=== PATIENT | male | born 1945 | race Hispanic/Latino ===

== ENCOUNTER 2025-02-12 09:32 | Emergency (ER) | payer OTHER ==
[~2025-02-12] VITALS: Ht 172.7 cm; Wt 90.7 kg
[2025-02-12] MEDS: LACTATED RINGERS 1000ML 1,000 ML IV ONE (10:23)
[2025-02-12] MEDS: acetaMINOPHEN 325 MG TAB PO ONE (10:23)
[2025-02-12 10:27] LABS: BASOPHILS # (AUTO) 0.03 K/uL (0.00-0.20); BASOPHILS % (AUTO) 0.3 % (0.0-5.0); EOSINOPHILS # (AUTO) 0.05 K/uL (0.00-0.70); EOSINOPHILS % (AUTO) 0.5 % (0.0-8.0); HEMATOCRIT 45.3 % (42-54); IMMATURE GRANULOCYTE ABSOLUTE 0.05 K/uL (0-1); LYMPHOCYTES # (AUTO) 1.5 K/uL (1.0-4.8); LYMPHOCYTES % (AUTO) 13.4 % (21.0-51.0); MEAN CORPUSCULAR HEMOGLOBIN 32.3 pg (27.0-33.0); MEAN CORPUSCULAR HGB CONC 33.8 g/dL (32.0-36.0); MEAN CORPUSCULAR VOLUME 95.8 fL (79-99); MONOCYTES # (AUTO) 1.1 K/uL (0.1-1.0); MONOCYTES % (AUTO) 9.9 % (3.0-13.0); NEUTROPHILS # (AUTO) 8.3 K/uL (1.8-7.7); NEUTROPHILS % (AUTO) 75.4 % (40.0-77.0); PLATELET COUNT (AUTO) 164 K/uL (130-400); RED BLOOD CELL COUNT(AUTO) 4.73 MIL/uL (4.50-6.20); RED CELL DISTRIBUTION WIDTH 12.7 % (11.0-15.5)
[2025-02-12 10:31] LABS: APPEARANCE,URINE CLEAR (CLEAR); BILIRUBIN,URINE NEGATIVE (NEGATIVE); COLOR,URINE LIGHT-YELLOW (YELLOW); GLUCOSE, URINE (UA) NEGATIVE (NEGATIVE); KETONES,URINE NEGATIVE (NEGATIVE); LEUKOCYTE ESTERASE ,URINE NEGATIVE Leu/uL (NEGATIVE); NITRATE,URINE NEGATIVE (NEGATIVE); OCCULT BLOOD,URINE NEGATIVE (NEGATIVE); PROTEIN,URINE NEGATIVE (NEGATIVE)
[2025-02-12 10:32] LABS: ADD UA MICROSCOPIC YES
[2025-02-12 10:33] LABS: MUCUS,URINE RARE LPF (None Seen); SQUAMOUS EPITHELIAL CELL,UR RARE /HPF (0-2); WBC,URINE 0-1 /HPF (0-1)
[2025-02-12 10:34] LABS: CREATININE 1.2 mg/dL (0.5-1.3); POTASSIUM 4.8 mmol/L (3.5-5.1)
--- NOTE | 2025-02-12 10:36 | ERN ---
General Chief Complaint: Headache Stated Complaint: HEADACHE AND JOINT PAIN X3 DAYS Time Seen by MD: 09:35 Source: patient History of Present Illness Initial Comments PATIENT IS A 79-YEAR-OLD GENTLEMAN COMING IN WITH MULTIPLE COMPLAINTS. PER PATIENT HAS BEEN HAVING FLU-LIKE SYMPTOMS FOR A COUPLE OF DAYS. HE STATES THAT HE IS HERE FOR FURTHER EVALUATION. Allergies: Coded Allergies: No Known Allergies (Unverified Allergy, Unknown, 02/12/25) Past Medical History Past Medical History: High Cholesterol, Hypertension Medical History Other: RA Past Surgical History: CABG ROS Dictation CONSTITUTIONAL: NO CHILLS, NO FEVER, NO WEAKNESS, NO DIAPHORESIS, NO MALAISE. HEAD/FACE: NO SIGNS OF TRAUMA. EENT: NO EYE PAIN, NO BLURRED VISION, NO TEARING, NO DOUBLE VISION, NO EAR PAIN, NO EAR DISCHARGE, NO NOSE PAIN, NO NASAL CONGESTION, NO THROAT PAIN, NO THROAT SWELLING, NO MOUTH PAIN. RESPIRATORY: NO COUGH, NO ORTHOPNEA, NO SOB, NO STRIDOR, NO WHEEZING. CARDIOVASCULAR: NO CHEST PAIN, NO EDEMA, NO PALPITATIONS, NO SYNCOPE. GASTROINTESTINAL/ABDOMINAL: NO ABDOMINAL PAIN, NO CONSTIPATION, NO DIARRHEA, NO NAUSEA, NO VOMITING. GENITOURINARY: NO ABNORMAL DISCHARGE, NO DYSURIA, NO FREQUENT URINATION, NO HEMATURIA. NO COMPLAINTS OF PAIN IN THE GENITALS. MUSCULOSKELETAL: NO BACK PAIN, NO GOUT, NO JOINT PAIN, NO JOINT SWELLING, NO MUSCLE PAIN, NO MUSCLE STIFFNESS, NO NECK PAIN. INTEGUMENTARY: NO CHANGE IN COLOR, NO CHANGE IN HAIR/NAILS, NO DRYNESS, NO LESION, NO LUMPS, NO RASH. NEUROLOGICAL/PSYCH: NO ANXIETY, NOT DEPRESSED, NO EMOTIONAL PROBLEM, NO HEADACHE, NO NUMBNESS, NO PRE-EXISTING DEFICIT, NO HISTORY OF SEIZURES, NO TREMORS, NO WEAKNESS. HEMATOLOGIC/LYMPHATIC: NOT ANEMIC, NO HISTORY OF BLOOD CLOTS, NO APPARENT BLEEDING, NO BRUISING, GLANDS NOT SWOLLEN. ALL SYSTEMS NEGATIVE, EXCEPT NOTED. Physical Exam Physical Exam Dictation VITAL SIGNS: REVIEWED. GENERAL APPEARANCE: ALERT, ORIENTED X3, NO ACUTE DISTRESS, OBESE. HEAD AND FACE: NON-TRAUMATIC. EYES: PERRL, PINK CONJUNCTIVAS, EYELID NO TRAUMA, ANTERIOR CHAMBER CLEAR. EARS: PINNAS INTACT AND NO SIGNS OF TRAUMA OR ERYTHEMA. EAR CANALS CLEAR AND NO DISCHARGE. TMS NO ERYTHEMA. NOSE: NO DISCHARGE, NO BLEEDING. OROPHARYNX: MOUTH NORMAL, TEETH NO CARIES, TONGUE PINK. PHARYNX CLEAR, NO ERYTHEMA. TONSILS NO EXUDATES, NO ABSCESSES NOTED. MUCOUS MEMBRANE MOIST. NECK: SUPPLE, NON-TENDER, NO THYROMEGALY, NO MASSES, NO JVD, NO BRUITS. BREAST: DEFERRED. CHEST: NO TENDERNESS, NO CREPITUS, NO PARADOXICAL MOVEMENT, NO RETRACTIONS. LUNGS: CLEAR, WELL-VENTILATED, SYMMETRIC, NO RALES, NO WHEEZING, NO RHONCHI, NO STRIDOR, GOOD BREATH SOUNDS BILATERALLY. HEART: REGULAR RATE, REGULAR RHYTHM, NO MURMUR, NO GALLOPS. VASCULAR: NO PERIPHERAL EDEMA. ABDOMEN: SOFT, POSITIVE BOWEL SOUNDS, NONDISTENDED, NO GUARDING, NONTENDER, NO REBOUND, NO MASSES NO HEPATOMEGALY, NO SPLENOMEGALY, NO COTTER'S SIGN, NO HERNIAS. RECTAL: DEFERRED. GENITAL: DEFERRED. NEUROLOGICAL: NORMAL SPEECH, GROSS MOTOR FUNCTION INTACT, GROSS SENSORY FU NCTION INTACT. MUSCULOSKELETAL: NECK NONTENDER, FULL RANGE OF MOTION, BACK NONTENDER, FULL RANGE OF MOTION. EXTREMITIES: NONTENDER, FULL RANGE OF MOTION. SKIN: COLOR PINK, DRY, NO TURGOR, NO RASH, NO LACERATIONS, NO ABRASIONS, NO CONTUSIONS. LYMPHATICS: DEFERRED. Results Laboratory and Microbiology Lab and Micro Result Laboratory Tests Test 02/12/25 10:00 02/12/25 10:06 Urine Color LIGHT-YELLOW (YELLOW) Urine Appearance CLEAR (CLEAR) Urine pH 6.0 (5.0-8.0) Urine Specific [place] 1.020 (1.001-1.031) Urine Protein NEGATIVE mg/dL (NEGATIVE) Urine Glucose (UA) NEGATIVE mg/dL (NEGATIVE) Urine Ketones NEGATIVE mg/dL (NEGATIVE) Urine Occult Blood NEGATIVE (NEGATIVE) Urine Nitrate NEGATIVE (NEGATIVE) Urine Bilirubin NEGATIVE mg/dL (NEGATIVE) Urine Urobilinogen 2.0 mg/dL (0.2-1.0) H Urine Leukocyte Esterase NEGATIVE John/uL Urine RBC 2-5 /HPF (0-1) H Urine WBC 0-1 /HPF (0-1) Urine Squamous Epithelial Cells RARE /HPF (0-2) Urine Bacteria None /HPF (None Seen) White Blood Count 11.0 K/uL (4.8-10.8) H Red Blood Count 4.73 MIL/uL (4.50-6.20) Hemoglobin 15.3 g/dL (14.0-18.0) Hematocrit 45.3 % (42-54) Mean Corpuscular Volume 95.8 fL (79-99) Mean Corpuscular Hemoglobin 32.3 pg (27.0-33.0) Mean Corpuscular Hemoglobin Concent 33.8 g/dL (32.0-36.0) Red Cell Distribution Width 12.7 % (11.0-15.5) Platelet Count 164 K/uL (130-400) Mean Platelet Volume 9.2 fL (7.5-10.5) Immature Granulocyte % (Auto) 0.5 % (0-1) Neutrophils (%) (Auto) 75.4 % (40.0-77.0) Lymphocytes (%) (Auto) 13.4 % (21.0-51.0) L Monocytes (%) (Auto) 9.9 % (3.0-13.0) Eosinophils (%) (Auto) 0.5 % (0.0-8.0) Basophils (%) (Auto) 0.3 % (0.0-5.0) Neutrophils # (Auto) 8.3 K/uL (1.8-7.7) H Lymphocytes # (Auto) 1.5 K/uL (1.0-4.8) Monocytes # (Auto) 1.1 K/uL (0.1-1.0) H Eosinophils # (Auto) 0.05 K/uL (0.00-0.70) Basophils # (Auto) 0.03 K/uL (0.00-0.20) Absolute Immature Granulocyte (auto 0.05 K/uL (0-1) Nucleated Red Blood Cells 0.0 % (0.0-0.19) Sodium Level 136 mmol/L (136-145) Potassium Level 4.8 mmol/L (3.5-5.1) Chloride Level 101 mmol/L (101-111) Carbon Dioxide Level 29 mmol/L (21-32) Blood Urea Nitrogen 20 mg/dL (7-18) H Creatinine 1.2 mg/dL (0.5-1.3) Glomerular Filtration Rate Calc 62 mL/min (>90) Random Glucose 112 mg/dL (70-105) H Total Calcium 9.0 mg/dL (8.5-10.1) Total Bilirubin 1.1 mg/dL (0.2-1.0) H Aspartate Amino Transf (AST/SGOT) 17 U/L (10-37) Alanine Aminotransferase (ALT/SGPT) 28 U/L (12-78) Alkaline Phosphatase 67 U/L (50-136) Total Creatine Kinase 99 U/L (21-232) Troponin I High Sensitivity 5 ng/L (4-75) Total Protein 7.1 g/dL (6.0-8.3) Albumin 3.6 g/dL (3.5-5.0) Influenza Type A Antigen Negative For Type A Influenza Type B Antigen Negative For Type B SARS-CoV-2, RNA, NAAT NEGATIVE SARS CoV-2 Group A Streptococcus Rapid negative (NEGATIVE) Labs Reviewed?: Yes EKG/XRAY/US/CT/MRI X-RAY Comment [address] [address] IMAGING REPORT Signed PATIENT: SARAHY SEGAL MR#: [id number] : 1945 SEX: M AGE: 79 LOCATION: [facility] ORDER 8 STATUS: [facility] REPORT#: [id number] SERVICE REASON: CP ORDERING PHYSICIAN: BEATRICE HELTON MD PROCEDURE: CXR1VW - CHEST 1VW Exam Type: CHEST 1VW Clinical Information: CP Comparison: None Findings: The lungs are clear of infiltrates. The heart is enlarged. Bony and soft tissue structures of the chest wall are unremarkable. IMPRESSION: Cardiomegaly. Clear lungs. DICTATED BY: ANAMIKA ARREOLA MD DATE: 02/12/251125 ELECTRONICALLY SIGNED BY: ANAMIKA ARREOLA MD DATE: 02/12/251128 MDM MDM: DIFFERENTIAL DIAGNOSIS: DEHYDRATION, URI, BODY ACHES, TENSION HEADACHE, RATIONALE: TESTS CONSIDERED AND ORDERED SECONDARY TO SHARED DECISION MAKING INCLUDE: PREVIOUS OUTSIDE RECORDS REVIEWED: OLD ER VISITS. RISK OF COMPLICATION AND/OR MORBIDITY OR MORTALITY OF PATIENT MANAGEMENT: NONE MEDICATIONS-PER MEDICATION RECONCILIATION PATIENT IS A 79-YEAR-OLD MALE COMING IN COMPLAINING OF BODY ACHES AND URI SYMPTOMS. LABORATORY WORKUP WITHIN NORMAL LIMITS. PATIENT RECEIVED IV FLUIDS AND ANTIPYRETICS STATES HE DOES NOT FEEL BETTER. HE WILL BE DISCHARGED IN STABLE CONDITION. ED Course Orders Procedure Category Date Status Time Cbc With Differential LAB 02/12/25 Complete 09:48 Comprehensive LAB 02/12/25 Complete Metabolic Panel 09:48 Troponin I High LAB 02/12/25 Complete Sensitivity 09:48 Urinalysis Profile LAB 02/12/25 Complete 09:48 12 Lead Ekg Tracing- EKG 02/12/25 Complete Technical 09:48 Lactated Ringers PHA 02/12/25 Complete 1000ml (Lactated 10:00 Acetaminophen 325 Tab PHA 02/12/25 Complete (Tylenol 325mg Tab 10:00 Creatine Kinase, Total LAB 02/12/25 Complete 09:48 Chest 1vw RAD 02/12/25 Resulted 09:48 Covid Rna Naat LAB 02/12/25 Complete 09:49 Influenza Type A & B, LAB 02/12/25 Complete Rapid 09:49 Rapid (Group A Strep) LAB 02/12/25 Complete 09:49 Current Medications Medications (Trade) Dose Ordered Sig/Kimmie Route PRN Reason Start Time Stop Time Status Last Admin Dose Admin Acetaminophen (TYLenol 325MG TAB) 650 mg ONCE ONCE PO 02/12/25 10:00 02/12/25 10:01 DC 02/12/25 10:23 Lactated Ringer's 1,000 ml @ 0 mls/hr ONCE ONCE IV 02/12/25 10:00 02/12/25 10:01 DC 02/12/25 10:23 Vital Signs Date Time Temp Pulse Resp B/P (MAP) Pulse Ox O2 Delivery O2 Flow Rate FiO2 02/12/25 10:28 99.1 77 18 126/70 95 Room Air* 0 21 02/12/25 10:23 99.1 02/12/25 09:35 101.8 82 18 132/70 93 Room Air 0 DX & DISP Disposition: Discharge Departure Impression: Primary Impression: Dehydration Additional Impression: URI (upper respiratory infection) Condition: Stable Additional Instructions: FOLLOW-UP WITH PRIMARY CARE PROVIDER IN 1 TO 2 DAYS. TAKE MEDICATIONS DIRECTED HERE IN THE EMERGENCY ROOM. OKAY TO CONTINUE HOME MEDICATIONS UNLESS OTHERWISE DISCUSSED DURING YOUR VISIT IN THE EMERGENCY ROOM TODAY. RETURN TO YOUR NEAREST EMERGENCY ROOM IF SYMPTOMS WORSEN OR IF THERE IS NO IMPROVEMENT. CALL 911 IF YOU NEED IMMEDIATE ASSISTANCE. TAKE TYLENOL [id number] NEEDED AND IF NO CONTRAINDICATIONS ARE PRESENT. INCREASE ORAL HYDRATION. A WOUND CULTURE OR URINE CULTURE WAS ORDERED HERE IN THE EMERGENCY ROOM DEPARTMENT PLEASE FOLLOW-UP WITH PRIMARY CARE PROVIDER AND ADVISE THEM TO GET REPEAT PORTS FROM OUR FACILITY. IF YOU HAD ANY EMILY WRAP/SPLINTS THAT WERE APPLIED HERE, PLEASE DO NOT REMOVE THEM UNTIL YOU SEE YOUR PRIMARY CARE OR SPECIALTY. REFERRALS: Referrals: SELF,REFERRAL (PCP) JACLYN ADLER MD Time of Disposition: 12:03 BEATRICE HELTON MD February 12, 2025 10:36
[2025-02-12 10:37] LABS: RAPID GROUP A STREP negative (NEGATIVE)
[2025-02-12 10:39] LABS: ALBUMIN 3.6 g/dL (3.5-5.0); BILIRUBIN,TOTAL 1.1 mg/dL (0.2-1.0); TOTAL PROTEIN, SERUM 7.1 g/dL (6.0-8.3)
[2025-02-12 10:41] LABS: SARS-CoV-2, RNA, NAAT NEGATIVE SARS CoV-2 (NEGATIVE)
[2025-02-12 10:47] LABS: INFLUENZA TYPE A Negative For Type A (NEGATIVE); INFLUENZA TYPE B Negative For Type B (NEGATIVE)
--- NOTE | 2025-02-12 11:07 | EKG ---
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
[2025-02-12 11:14] VITALS: TEMP 99.1
--- NOTE | 2025-02-12 11:29 | HMCIMG ---
Exam Type: CHEST 1VW Clinical Information: CP Comparison: None Findings: The lungs are clear of infiltrates. The heart is enlarged. Bony and soft tissue structures of the chest wall are unremarkable. IMPRESSION: Cardiomegaly. Clear lungs.
[2025-02-12 12:03] VITALS: BP 133/68; PULSE 76; RESP 17; TEMP 98.9; O2SAT 95
--- NOTE | 2025-02-12 12:16 | NUR ---
PT AAOX4, PT IS STABLE NO DISTRESS VITALS WNL NO C/O PAIN NOW, PT GIVEN INSTRUCTIONS FOR HOME, IV REMOVED CATHETER INTACT. PT HAD HIS DRIVE HIM HOME. NO NEW MEDICATIONS AT THIS TIME.
== END 2025-02-12 12:18 | disposition home or self-care (01) ==
LOC: EDH 09:32
DX: E86.0 Dehydration (principal); J06.9 Acute upper respiratory infection, unspecified; E78.00 Pure hypercholesterolemia, unspecified; Z95.1 Presence of aortocoronary bypass graft; Z20.822 Contact with and (suspected) exposure to COVID-19
CPT/HCPCS: 99285; 96360; 71045; 87635; 82550; 84484; 80053; 85025; 87880; 87804 ×2; 81001; 36415; 93005; J7120

== ENCOUNTER 2025-07-19 16:32 | Inpatient (IN) | payer OTHER ==
[~2025-07-19] VITALS: Ht 172.7 cm; Wt 86.5 kg
[~2025-07-19 16:32] MED LIST: ASPI-1443 PO; ATOR10 PO; CARV3.12 PO; HYDR-4060 PO; HYDR200T75 PO; LISI2.5T13 PO
--- NOTE | 2025-07-19 16:58 | EKG ---
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
[2025-07-19 17:03] LABS: IMMATURE GRANULOCYTE ABSOLUTE 0.05 K/uL (0-1); NUCLEATED RED BLOOD CELLS 0.0 % (0.0-0.19); PLATELET COUNT (AUTO) 293 K/uL (130-400); RED BLOOD CELL COUNT(AUTO) 3.85 MIL/uL (4.50-6.20); RED CELL DISTRIBUTION WIDTH 12.9 % (11.0-15.5); WHITE BLOOD COUNT (AUTO) 9.6 K/uL (4.8-10.8)
--- NOTE | 2025-07-19 17:10 | ERN ---
General Chief Complaint: Post-Op Problem Stated Complaint: RT KNEE PAIN POST OP PROBLEM Time Seen by MD: 16:37 Source: patient History of Present Illness Initial Comments Patient is a 79-year-old male coming in complaining of right knee pain. Per patient the pain has been ongoing for a couple of days progressively getting worse. He recently had an operation on the right knee by Dr. Quick. Allergies: Coded Allergies: No Known Allergies (Unverified Allergy, Unknown, 02/12/25) Home Meds Active Scripts Hydrocodone/Acetaminophen (Hydrocodon-Acetaminophen 5-325) 5 Mg-325 Mg Tablet, 1 -2 TAB PO Q8H PRN for ACUTE POST-OP PAIN (G89.18) for 7 Days, #42 TAB 0 Refills Prov:CONSTANCE QUICK MD 07/14/25 Aspirin (Aspirin EC) 81 Mg Tablet.dr, 81 MG PO BID for DVT PROPHYLAXIS for 20 Days, #40 TAB Prov:CONSTANCE QUICK MD 07/14/25 Reported Medications Hydroxychloroquine Sulfate (Hydroxychloroquine Sulfate) 200 Mg Tablet, 200 MG PO DAILY, TAB EVERY MON-Mon07/10/25 Carvedilol (Carvedilol) 3.125 Mg Tablet, 3.125 MG PO BID, TAB 07/10/25 Atorvastatin Calcium (LIPITOR) 20 Mg Tab, 20 MG PO DAILY, TAB 07/10/25 Lisinopril (Lisinopril) 2.5 Mg Tablet, 2.5 MG PO DAILY, TAB 07/10/25 Past Medical History Past Medical History: High Cholesterol, Hypertension Medical History Other: RA Past Surgical History: CABG, Other Surgical History Other: RT TOTAL KNEE REPLACEMENT ROS Dictation CONSTITUTIONAL: No chills, no fever, no weakness, no diaphoresis, no malaise. HEAD/FACE: No signs of trauma. EENT: No eye pain, no blurred vision, no tearing, no double vision, no ear pain, no ear discharge, no nose pain, no nasal congestion, no throat pain, no throat swelling, no mouth pain. RESPIRATORY: No cough, no orthopnea, no SOB, no stridor, no wheezing. CARDIOVASCULAR: No chest pain, no edema, no palpitations, no syncope. GASTROINTESTINAL/ABDOMINAL: No abdominal pain, no constipation, no diarrhea, no nausea, no vomiting. GENITOURINARY: No abnormal discharge, no dysuria, no frequent urination, no hematuria. No complaints of pain in the genitals. MUSCULOSKELETAL: No back pain, no gout, joint pain, joint swelling, no muscle pain, no muscle stiffness, no neck pain. INTEGUMENTARY: No change in color, no change in hair/nails, no dryness, no lesion, no lumps, no rash. NEUROLOGICAL/PSYCH: No anxiety, not depressed, no emotional problem, no headache, no numbness, no pre-existing deficit, no history of seizures, no tremors, no weakness. HEMATOLOGIC/LYMPHATIC: Not anemic, no history of blood clots, no apparent bleeding, no bruising, glands not swollen. All Systems Negative, Except as Noted. Physical Exam Physical Exam Dictation VITAL SIGNS: Reviewed. GENERAL APPEARANCE: Alert, oriented x3, no acute distress, obese. HEAD AND FACE: Non-traumatic. EYES: PERRL, pink conjunctivas, eyelid no trauma, anterior chamber clear. EARS: Pinnas intact and no signs of trauma or erythema. Ear canals clear and no discharge. TMs no erythema. NOSE: No discharge, no bleeding. OROPHARYNX: Mouth normal, teeth no caries, tongue pink. Pharynx clear, no erythema. Tonsils no exudates, no abscesses noted. Mucous membrane moist. NECK: Supple, non-tender, no thyromegaly, no masses, no JVD, no bruits. BREAST: Deferred. CHEST: No tenderness, no crepitus, no paradoxical movement, no retractions. LUNGS: Clear, well-ventilated, symmetric, no rales, no wheezing, no rhonchi, no stridor, good breath sounds bilaterally. HEART: Regular rate, regular rhythm, no murmur, no gallops. VASCULAR: No peripheral edema. ABDOMEN: Soft, positive bowel sounds, nondistended, no guarding, nontender, no rebound, no masses no hepatomegaly, no splenomegaly, no Arias's sign, no hernias. RECTAL: Deferred. GENITAL: Deferred. NEUROLOGICAL: Normal speech, gross motor function intact, gross sensory function intact. MUSCULOSKELETAL: Neck nontender, full range of motion, back nontender, full range of motion. EXTREMITIES: Nontender, full range of motion. Right knee pain on palpation SKIN: Color pink, dry, no turgor, no rash, no lacerations, no abrasions, no contusions. LYMPHATICS: Deferred. Results Laboratory and Microbiology Lab and Micro Result Laboratory Tests Test 07/19/25 16:57 07/19/25 17:32 White Blood Count 9.6 K/uL (4.8-10.8) Red Blood Count 3.85 MIL/uL (4.50-6.20) L Hemoglobin 12.1 g/dL (14.0-18.0) L Hematocrit 35.5 % (42-54) L Mean Corpuscular Volume 92.2 fL (79-99) Mean Corpuscular Hemoglobin 31.4 pg (27.0-33.0) Mean Corpuscular Hemoglobin Concent 34.1 g/dL (32.0-36.0) Red Cell Distribution Width 12.9 % (11.0-15.5) Platelet Count 293 K/uL (130-400) Mean Platelet Volume 8.8 fL (7.5-10.5) Immature Granulocyte % (Auto) 0.5 % (0-1) Neutrophils (%) (Auto) 59.4 % (40.0-77.0) Lymphocytes (%) (Auto) 28.0 % (21.0-51.0) Monocytes (%) (Auto) 10.3 % (3.0-13.0) Eosinophils (%) (Auto) 1.4 % (0.0-8.0) Basophils (%) (Auto) 0.4 % (0.0-5.0) Neutrophils # (Auto) 5.7 K/uL (1.8-7.7) Lymphocytes # (Auto) 2.7 K/uL (1.0-4.8) Monocytes # (Auto) 1.0 K/uL (0.1-1.0) Eosinophils # (Auto) 0.13 K/uL (0.00-0.70) Basophils # (Auto) 0.04 K/uL (0.00-0.20) Absolute Immature Granulocyte (auto 0.05 K/uL (0-1) Nucleated Red Blood Cells 0.0 % (0.0-0.19) Sodium Level 137 mmol/L (136-145) Potassium Level 4.5 mmol/L (3.5-5.1) Chloride Level 100 mmol/L (101-111) L Carbon Dioxide Level 23 mmol/L (21-32) Blood Urea Nitrogen 22 mg/dL (7-18) H Creatinine 1.1 mg/dL (0.5-1.3) Glomerular Filtration Rate Calc 69 mL/min (>90) Random Glucose 134 mg/dL (70-105) H Lactic Acid Level 2.8 mmol/L (0.8-2.5) H Total Calcium 9.1 mg/dL (8.5-10.1) Total Creatine Kinase 41 U/L (21-232) # Troponin I High Sensitivity 5 ng/L (4-75) Urine Color YELLOW (YELLOW) Urine Appearance CLEAR (CLEAR) Urine pH 7.0 (5.0-8.0) Urine Specific [place] 1.019 (1.001-1.031) Urine Protein NEGATIVE mg/dL (NEGATIVE) Urine Glucose (UA) NEGATIVE mg/dL (NEGATIVE) Urine Ketones NEGATIVE mg/dL (NEGATIVE) Urine Occult Blood NEGATIVE (NEGATIVE) Urine Nitrate NEGATIVE (NEGATIVE) Urine Bilirubin NEGATIVE mg/dL (NEGATIVE) Urine Urobilinogen 0.2 mg/dL (0.2-1.0) Urine Leukocyte Esterase NEGATIVE John/uL Labs Reviewed?: Yes EKG/XRAY/US/CT/MRI EKG Comment 07/19/2025 time 4:53 p.m. Ventricular rate 73 Sinus rhythm [place] [address] wave elevation or depression MDM MDM: Differential diagnosis: Lactic acidosis, sepsis, seizures, dehydration Rationale: Tests considered and ordered secondary to shared decision making include: labs, ECG and radiology Previous outside records reviewed: Old ER visits. Risk of complication and/or morbidity or mortality of patient management: None Medications-Per medication reconciliation Need for hospitalization: Patient does meet criteria for hospitalization. Need for emergency major/minor surgery: No There are no social concerns with this patient. Prescription drug management Prescriptions will include symptomatic care Patient's prior external medical records from other ER visits were reviewed by me as indicated. Prior testing and results from previous visits were reviewed. Prior tests were taken into account with medical decision making and resource utilization, independent historian/historians were used to obtain complete me dical history. I independently interpreted the test that were performed, results were reviewed by me and considered findings on radiology if ordered. Medical management and examination interpretation discussions were had by me with other qualified healthcare professionals as indicated for the patient's care. Patient is a 79-year-old gentleman coming in complaining of right knee pain. Patient has a surgical procedure by Dr. Husain was in his coming in due to the pain. X-ray did not disclose acute findings laboratory workup positive for elevated lactic acid. Patient will be admitted under the care of hospitalist group for ongoing management. Blood cultures has been taken we will start him on antibiotics. ED Course Orders Procedure Category Date Status Time 12 Lead Ekg Tracing- EKG 07/19/25 Complete Technical 16:39 Cbc With Differential LAB 07/19/25 Complete 16:39 Blood Cult LAI 07/19/25 In Process 16:39 Urinalysis Profile LAB 07/19/25 Complete 16:39 Culture Urine LAI 07/19/25 In Process 16:39 Acetaminophen 500mg PHA 07/19/25 Complete Tab (Tylenol 500mg T 17:00 Creatine Kinase, Total LAB 07/19/25 Complete 16:39 Troponin I High LAB 07/19/25 Complete Sensitivity 16:39 Lactic Acid LAB 07/19/25 Complete 16:39 Basic Metabolic Panel LAB 07/19/25 Complete 16:39 Knee 3vws Rt RAD 07/19/25 Taken 17:15 0.9%Nacl 1000ml (Ns PHA 07/19/25 Logged 1000ml) 18:30 Current Medications Medications (Trade) Dose Ordered Sig/Kimmie Route PRN Reason Start Time Stop Time Status Last Admin Dose Admin Acetaminophen (TYLenol 500MG TAB) 1,000 mg ONCE ONCE PO 07/19/25 17:00 07/19/25 17:01 DC 07/19/25 17:33 Sodium Chloride 1,000 ml @ 0 mls/hr ONCE ONCE IV 07/19/25 18:30 07/19/25 18:31 UNV Vital Signs Date Time Temp Pulse Resp B/P (MAP) Pulse Ox O2 Delivery O2 Flow Rate FiO2 07/19/25 17:20 97.2 82 16 134/72 Room Air* 0 21 07/19/25 16:37 99.1 76 20 134/68 100 Room Air DX & DISP Disposition: Inpatient Decision to Admit Time: 18:08 Departure Impression: Primary Impression: Dehydration Additional Impressions: Lactic acidosis, SIRS (systemic inflammatory response syndrome) Condition: Stable Referrals: JOHN AMBROSIO MD (PCP) BEATRICE HELTON MD Jul 19, 2025 17:10
[2025-07-19 17:16] LABS: CREATININE 1.1 mg/dL (0.5-1.3); GLOMERULAR FILTR. RATE CALC 69.0 mL/min (>90); GLUCOSE,RANDOM 134.0 mg/dL (70-105); SODIUM SERUM 137.0 mmol/L (136-145); UREA NITROGEN, BLOOD 22.0 mg/dL (7-18)
[2025-07-19 17:27] LABS: CREATINE KINASE, TOTAL 41.0 U/L (21-232)
[2025-07-19 17:44] LABS: APPEARANCE,URINE CLEAR (CLEAR); GLUCOSE, URINE (UA) NEGATIVE (NEGATIVE); LEUKOCYTE ESTERASE ,URINE NEGATIVE Leu/uL (NEGATIVE); NITRATE,URINE NEGATIVE (NEGATIVE); OCCULT BLOOD,URINE NEGATIVE (NEGATIVE)
[2025-07-19 17:45] LABS: ADD UA MICROSCOPIC NO
[2025-07-19] MEDS: 0.9%NACL 1000ML 1,000 ML IV ONE (18:08)
--- NOTE | 2025-07-19 18:12 | HP ---
History of Present Illness Reason for Visit: right knee pain History of Present Illness is a 79-year-old male that was seen and examined today on 07/19/2025. Patient came to the emergency department with a chief complaint of knee pain. Onset was 07/11/2025. Location is right knee. Duration is on and off. Character is described as aching. There was no alleviating factors. Symptoms are aggravated with walking. Patient denies any associated fever or chills. Patient had a right knee arthroplasty on 07/11/2025. Today in the emergency department lactic acid 2.8. All other labs unremarkable. Right knee x-ray is unremarkable. Emergency room physician recommended patient be admitted so he co uld be evaluated by orthopedic surgeon. Past Medical History Patient History: Cardiovascular disease MOTHER, , Cause: Heart failure Diabetes mellitus MOTHER, , Cause: Heart failure FATHER, , Cause: Pneumonia Hypertension MOTHER, , Cause: Heart failure FATHER, , Cause: Pneumonia ADDITIONAL PAST MEDICAL HISTORY: [Hypertension, hyperlipidemia] SOCIAL HISTORY: [Negative for smoking, alcohol use, drug use] SURGICAL HISTORY: [CABG, right knee arthroplasty, appendectomy in 1970, right shoulder surgery] Review of Systems General: No Fever, No Chills, No Night Sweats, No Fatigue, No Malaise, No Appetite, No Other HEENT: No Head Aches, No Visual Changes, No Eye Pain, No Ear Pain, No Dysphasia, No Sinus Congestion, No Post Nasal Drip, No Sore Throat, No Other Pulmonary: No Dyspnea, No Cough, No Pleuritic Chest Pain, No Other Cardiovascular: No: Chest Pain, Palpitations, Orthopnea, Paroxysmal Noc. Dyspnea, Edema, Lt Headedness, Other Gastrointestinal: No: Nausea, Vomiting, Abdominal Pain, Diarrhea, Constipation, Melena, Hematochezia, Other Genitourinary: No Dysuria, No Frequency, No Incontinence, No Hematuria, No Retention, No Other Musculoskeletal: leg pain; No: other, neck pain, shoulder pain, arm pain, back pain, hand pain, foot pain Skin: No Urticaria, No Rash, No Other Neurological: No: Weakness, Numbness, Incoordination, Change in speech, Confusion, Seizures, Other Allergies: Coded Allergies: No Known Allergies (Unverified Allergy, Unknown, 02/12/25) Scheduled Aspirin (Aspirin EC), 81 MG PO BID Atorvastatin Calcium (Lipitor), 20 MG PO DAILY, (Reported) Carvedilol (Carvedilol), 3.125 MG PO BID, (Reported) Hydroxychloroquine Sulfate (Hydroxychloroquine Sulfate), 200 MG PO DAILY, (Reported) Lisinopril (Lisinopril), 2.5 MG PO DAILY, (Reported) Scheduled PRN Hydrocodone/Acetaminophen (Hydrocodon-Acetaminophen 5-325), 1-2 TAB PO Q8H PRN for ACUTE POST-OP PAIN (G89.18) Exam Vital Signs Vital Signs Date Time Temp Pulse Resp B/P (MAP) Pulse Ox O2 Delivery O2 Flow Rate FiO2 07/19/25 17:20 97.2 82 16 134/72 Room Air* 0 21 07/19/25 16:37 100 General Appearance: Alert, Oriented X3, Cooperative, No acute distress HEENT: Atraumatic, EOMI, Mucous membr. moist/pink Respiratory: Clear to auscultation, Normal air movement, NL respiratory effort Cardiovascular: Regular rate, Regular rhythm, Normal S1, Normal S2 Abdominal: Normal bowel sounds, Soft, No tenderness Extremities: No edema Skin: No breakdown, No significant lesion Neuro: Normal gait, Normal speech, Strength at 5/5 X4 ext, Sensation intact, Cranial nerves 3-12 NL Psych/Mental Status: Mental status NL, Thoughts/Content NL Assessment/Plan ASSESSMENT: [ Right knee pain, POA Status post right knee arthroplasty on 07/11/2025 Hyperlactatemia , POA Weakness] PLAN: [ Admit patient to medical floor as inpatient status. Patient will be followed by orthopedic service. As needed analgesia with morphine. Physical therapy for evaluation and treatment. Check procalcitonin, follow up with the results. Patient does not have any tachycardia, tachypnea, or fever. Patient does not meet clinical sepsis criteria. There was no redness or swelling. There does not appear to be any infection to surgery site. Reviewed patient's right knee x-ray which was unremarkable. Repeat lactic acid in a.m.. Fluid resuscitation lactated Ringer's 30 mL/kg. Check blood culture, follow up with the results. GI prophylaxis, famotidine DVT prophylaxis, Lovenox ADVANCED CARE PLANNING 1. Which of the following were discussed? Hospice Care - Yes Therapeutic options - yes Advance Directives - Yes - patient does not have any advance directives in place at this time. Patient states that his , Margarita avlerio can make decisions for him if he becomes unable. Other discussions - patient wishes to remain a full code 2. Discussed with who? Patient 3. Voluntary nature of this service was explained to the patient? Yes 4. Amount of time spent - ___16 minutes____ 5. Reviewed by Physician? (if this service was performed by NPP) Yes This document was generated in part using voice recognition software, occasional wrong word or sound alike substitutions may have occurred due to the inherent limitations of voice recognition software. Read the chart carefully and recognize using context, where the substitutions have occurred. Although every effort was made to edit the content, register repairer and typing errors may occur ATTESTATION BY PHYSICIAN I have seen and examined the patient. I reviewed the documentation, medical decision making, and treatment plan as noted by the mid-level provider above. I agree with the findings and plan of care.] MADDISON PINEDO [facility] Jul 19, 2025 18:12
--- NOTE | 2025-07-19 18:20 | HMCIMG ---
EXAM: CR right Knee, 3 View. CLINICAL HISTORY: pain COMPARISON: None provided. FINDINGS: Cemented right total knee arthroplasty is in near-anatomic alignment. No periprosthetic fracture is identified. There is a small knee joint effusion. IMPRESSION: 1. No acute findings. Cemented right total knee arthroplasty in near-anatomic alignment with small knee joint effusion. /[place]
[2025-07-19] MEDS ORDERED: LACTULOSE 20 GM/30 ML UDCUP PO PRN (18:30)
[2025-07-19] MEDS: LACTATED RINGERS IV ONE (18:39)
[2025-07-19 21:18] VITALS: TEMP 98.5
[2025-07-19 21:30] VITALS: BP 153/77; PULSE 82; RESP 22; TEMP 97.3
--- NOTE | 2025-07-19 22:00 | NUR ---
admit/teaching patient awake alert, ox3, no family at bedside, dressing right knee d/i, ble scds in place . teach patient plan of care, pain management and expected outcome, patient verbalizes understanding via teach back, attempt to have home medications locked up, patient refuses with have take home in the morning, call larkin at reach
[2025-07-19 23:28] VITALS: BP 129/61; PULSE 72; RESP 16; TEMP 97.9
[2025-07-20] VITALS (7 sets, daily range): BP systolic 108–124; BP diastolic 60–72; PULSE 62–83; RESP 16–20; TEMP 97.4–99.7; O2SAT 97–98
--- NOTE | 2025-07-20 02:20 | NUR ---
hospitalist hospitalist jasmin mcpherson mine expert to see and examen patient with orders
[2025-07-20 04:06] LABS: IMMATURE GRANULOCYTE ABSOLUTE 0.05 K/uL (0-1); NUCLEATED RED BLOOD CELLS 0.0 % (0.0-0.19); PLATELET COUNT (AUTO) 234 K/uL (130-400); RED BLOOD CELL COUNT(AUTO) 3.43 MIL/uL (4.50-6.20); RED CELL DISTRIBUTION WIDTH 12.9 % (11.0-15.5); WHITE BLOOD COUNT (AUTO) 7.6 K/uL (4.8-10.8)
[2025-07-20 04:18] LABS: CREATININE 1.0 mg/dL (0.5-1.3); GLOMERULAR FILTR. RATE CALC 77.0 mL/min (>90); GLUCOSE,RANDOM 115.0 mg/dL (70-105); PHOSPHORUS 3.3 mg/dL (2.5-4.9); SODIUM SERUM 139.0 mmol/L (136-145); UREA NITROGEN, BLOOD 24.0 mg/dL (7-18)
[2025-07-20] MEDS: FAMOTIDINE 20MG TAB PO SCH (08:20)
--- NOTE | 2025-07-20 10:29 | CONS ---
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 The patient was admitted for total knee arthroplasty on 07/11/25 and had a normal, uneventful post-operative care, being dismissed on 07/14/25. The patient reports that on Monday of last week he was seen by the physical therapist from the [facility] that the [place] approved to see him and in his opinion he was a little too rough especially trying to work on extension of the knee doing a passive manipulation the created pain that started to getting worse as time went by and the pain medication prescribed to the patient did not help to relieve it. The patient did not contact my office and presented to the emergency room yesterday afternoon and his labs presented with a normal results except for the presence of an elevated lactic acid reason why the patient was admitted. Since admission the patient has been put on stronger pain medication which has helped relieve some of the pain and he seems to be responding well to it. This morning the lactic acid results were normal. PAST MEDICAL HISTORY: DM, HTN, OA, Heart disease, Hyperlipidemia PAST SURGICAL HISTORY: Open heart, cardiac stent, L TKA, cholecystectomy FAMILY HISTORY: Heart disease, stroke, DM SOCIAL HISTORY: Negative for use of tobacco or alcohol ALLERGIES: NKDA REVIEW OF SYSTEMS: The patient denies fever, chills, night sweats, shortness of breath, palpitations or urinary symptoms. PHYSICAL EXAMINATION: On physical exam the patient at this time is awake, alert and oriented and in no distress sitting in a chair just finishing his lunch. He is breathing normally with no respiratory distress. Examination of the right lower extremity shows postoperative edema as expected. He has an intact dressing with no bleeding which was already changed by the [facility] nurse. The patient has adequate flexion to at least 90 but he has extension actively of-30 degrees and passively goes down to -10. He does have adequate function of the extensor mechanism. Distal neurovascular exam is normal and the calf is soft and nontender. RADIOLOGIC STUDIES: He had three x-rays of the right knee done yesterday which even though they are of good quality, the views are quite unusual which did not allow to evaluate properly but he does not have any fracture or dislocation noted. There is very minimal effusion, and the components are in adequate position and alignment with no signs of loosening. ASSESSMENT: Acute postoperative right knee pain likely secondary to manipulation. Elevated lactic acid which has now resolved PLAN: I have changed the pain medication treatment for this patient at this time and I am going to put him on more of a scheduled medication and tomorrow morning we will dismissed once his pain is under better control. I have tried to contact the nurse in the home health, Nadia Lewis at [phone], telephone that was given to me by the patient. I will try to contact her tomorrow again to give further instructions in reference of the therapy for this patient. CONSTANCE ALDRICH MD Jul 20, 2025 10:29
--- NOTE | 2025-07-20 13:32 | PN ---
[facility] PROGRESS NOTE Date of Service: Jul 20, 2025 Time of Service: 13:24 SUBJECTIVE: 07/20 Patient continues with right knee pain. Patient has been placed on Toradol scheduled q.8 hours by Orthopedic surgery. REVIEW OF SYSTEMS CONSTITUTIONAL: Denies fevers, chills, or night sweats. No unintentional weight loss reported. NEUROLOGICAL: Denies headache, amaurosis fugax, motor weakness, sensory deficit, vertigo/spinning sensation, gait abnormalities, or tremors. ENT: No hearing loss, otalgia, otorrhea, rhinitis, rhinorrhea, hoarseness, or sore throat. CARDIOVASCULAR: Denies any exertional angina, dyspnea on exertion, orthopnea, paroxysmal nocturnal dyspnea, palpitations, life-threatening arrhythmias, claudication. PULMONARY: Denies any shortness of breath, cough, phlegm/sputum, hemoptysis, pleuritic chest pain. SLEEP: Denies morning headaches, daytime somnolence or napping. Denies difficulty falling asleep, staying asleep, waking from sleep. Denies knowledge of snoring. GASTROINTESTINAL: Denies any type of dysphagia to either liquids or solids. Denies nausea, vomiting, pyrosis, early satiety, abdominal pain, diarrhea, constipation, or changes in stool consistency or caliber. Denies coffee-ground emesis, hematemesis, hematochezia, or melanotic stools. GENITOURINARY: Denies frequency, urgency, nocturia, hematuria or incontinence (Storage/Irritative symptoms.) Low urinary stream, straining to void, urinary intermittency or hesitancy, splitting of the voiding stream, terminal dribbling. ENDOCRINOLOGIC: Denies polyuria, polydipsia, polyphagia or heat/cold intolerances. HEMATOLOGIC: Denies thrombophilia/previous clots, or coagulopathy/bleeding disorders. ONCOLOGIC: Denies personal history of malignancy. DERMATOLOGIC: Denies rashes or pruritus. PSYCHIATRIC: Denies any suicidal or homicidal ideation. Denies hallucinations. PHYSICAL EXAM GENERAL APPEARANCE: The patient is awake, alert, and oriented, in no acute cardiopulmonary distress. NEUROLOGICAL: Cranial nerves II-XII grossly intact. Motor is 5/5 in bilateral upper and lower extremities proximal to distal. No sensory deficits. HEENT: Face is symmetric. Pupils are equal and reactive. Extraocular movements are intact. NECK: Supple. No JVD. No thyromegaly. No submental, submandibular, pre-/postauricular, occipital or supraclavicular lymphadenopathy. CHEST: Normal chest expansion. No Telemetry. LUNGS: Absence of any rales, rhonchi or any wheezing. CARDIOVASCULAR: Regular. S1 and S2 normal. No appreciable rubs, murmurs or gallops. ABDOMEN: Soft, nontender, and nondistended. There is no rebound, voluntary guarding, or rigidity. : Deferred. No Dong. EXTREMITIES: Non-edematous and not cyanotic. No clubbing. Good capillary refill. SKIN: No skin breakdown. Vital Signs (last 8hr) Date Time Temp Pulse Resp B/P (MAP) Pulse Ox O2 Delivery O2 Flow Rate FiO2 07/20/25 12:00 97.5 73 18 112/67 99 Room Air 07/20/25 08:00 99.7 80 18 115/72 97 Room Air LABS: Laboratory: Test 07/20/25 03:59 07/19/25 17:32 07/19/25 16:57 Range/Units White Blood Count 7.6 4.8-10.8 K/uL Red Blood Count 3.43 L 4.50-6.20 MIL/uL Hemoglobin 10.6 L 14.0-18.0 g/dL Hematocrit 32.0 L 42-54 % Mean Corpuscular Volume 93.3 79-99 fL Mean Corpuscular Hemoglobin 30.9 27.0-33.0 pg Mean Corpuscular Hemoglobin Concent 33.1 32.0-36.0 g/dL Red Cell Distribution Width 12.9 11.0-15.5 % Platelet Count 234 130-400 K/uL Mean Platelet Volume 8.5 7.5-10.5 fL Immature Granulocyte % (Auto) 0.7 0-1 % Neutrophils (%) (Auto) 64.8 40.0-77.0 % Lymphocytes (%) (Auto) 21.8 21.0-51.0 % Monocytes (%) (Auto) 10.4 3.0-13.0 % Eosinophils (%) (Auto) 2.0 0.0-8.0 % Basophils (%) (Auto) 0.3 0.0-5.0 % Neutrophils # (Auto) 5.0 1.8-7.7 K/uL Lymphocytes # (Auto) 1.7 1.0-4.8 K/uL Monocytes # (Auto) 0.8 0.1-1.0 K/uL Eosinophils # (Auto) 0.15 0.00-0.70 K/uL Basophils # (Auto) 0.02 0.00-0.20 K/uL Absolute Immature Granulocyte (auto 0.05 0-1 K/uL Nucleated Red Blood Cells 0.0 0.0-0.19 % Sodium Level 139 136-145 mmol/L Potassium Level 4.1 3.5-5.1 mmol/L Chloride Level 105 101-111 mmol/L Carbon Dioxide Level 25 21-32 mmol/L Blood Urea Nitrogen 24 H 7-18 mg/dL Creatinine 1.0 0.5-1.3 mg/dL Glomerular Filtration Rate Calc 77 >90 mL/min Random Glucose 115 H 70-105 mg/dL Lactic Acid Level 1.2 0.8-2.5 mmol/L Total Calcium 8.4 L 8.5-10.1 mg/dL Phosphorus Level 3.3 2.5-4.9 mg/dL Magnesium Level 2.10 1.80-2.40 mg/dL Urine Color YELLOW YELLOW Urine Appearance CLEAR CLEAR Urine pH 7.0 5.0-8.0 Urine Specific [place] 1.019 1.001-1.031 Urine Protein NEGATIVE NEGATIVE mg/dL Urine Glucose (UA) NEGATIVE NEGATIVE mg/dL Urine Ketones NEGATIVE NEGATIVE mg/dL Urine Occult Blood NEGATIVE NEGATIVE Urine Nitrate NEGATIVE NEGATIVE Urine Bilirubin NEGATIVE NEGATIVE mg/dL Urine Urobilinogen 0.2 0.2-1.0 mg/dL Urine Leukocyte Esterase NEGATIVE NEGATIVE John/uL Total Creatine Kinase 41 # 21-232 U/L Troponin I High Sensitivity 5 4-75 ng/L Procalcitonin < 0.05 L 0.05-0.5 ng/mL Current Medications Medications (Trade) Dose Ordered Sig/Kimmie Route PRN Reason Start Time Stop Time Status Last Admin Dose Admin Acetaminophen (TYLenol 325MG TAB) 650 mg Q6H PRN PO TEMPERATURE GREATER THAN 101.5 07/19/25 18:30 08/18/25 18:29 07/20/25 08:20 650 MG Acetaminophen (TYLenol 500MG TAB) 1,000 mg Q8H PO 07/20/25 17:00 08/19/25 16:59 Atorvastatin Calcium (LIPItor 40MG) 40 mg HS PO 07/19/25 21:00 08/18/25 20:59 07/19/25 19:33 40 MG Famotidine (Pepcid 20mg Tab) 20 mg DAILY PO 07/20/25 09:00 08/19/25 08:59 07/20/25 08:20 20 MG Hydralazine HCl (APRESOLine 20MG INJ) 10 mg Q6H PRN IV For:SBP above 160;DBP above 90 07/19/25 18:30 08/18/25 18:29 Ketorolac Tromethamine (toRADol) 15 mg Q8H IV 07/20/25 09:00 07/25/25 08:59 Lactulose (Constulose 20gm/ 30ml Udcup) 20 gm BID PRN PO CONSTIPATION 07/19/25 18:30 08/18/25 18:29 Morphine Sulfate (morPHINE 4MG SYG) 2 mg Q4H PRN IVP BREAKTHROUGH PAIN 07/19/25 18:30 07/26/25 18:29 07/20/25 08:20 2 MG Ondansetron HCl (zoFRAN 4MG INJ) 4 mg Q6H PRN IV NAUSEA/VOMITING 07/19/25 18:30 08/18/25 18:29 Oxycodone HCl (ROXicoDONE) 5 mg Q4H PRN PO MODERATE PAIN (4-6) 07/20/25 09:00 07/27/25 08:59 Oxycodone HCl (ROXicoDONE) 10 mg Q4H PRN PO SEVERE PAIN (7-10) 07/20/25 09:00 07/27/25 08:59 DIAGNOSTICS / RADIOLOGY: [ ] ASSESSMENT: Right knee pain, POA Status post right knee arthroplasty on 07/11/2025 Hyperlactatemia , POA Weakness, POA PLAN: Monitor off antibiotics for Signs of infection Trend WBCs Tylenol, oxycodone and IV morphine p.r.n. for breakthrough pain I agree with Toradol scheduled Follow up with Orthopedic surgery, appreciate assistance O2 nasal cannula as needed Continue atorvastatin Monitor blood pressure continue heart healthy diet GI prophylaxis with famotidine No need for IV fluids Trend a.m. BMP Replete electrolytes as necessary DVT prophylaxis with SCDs only for now Trend a.m. CBC Full code Case was discussed with patient's nurse at bedside Attention time greater than 30 minutes DEVIKA GRAHAM IV, MD Jul 20, 2025 13:32
[2025-07-20] MEDS: ASPIRIN 81MG CHEW TAB PO SCH (13:46)
--- NOTE | 2025-07-20 16:42 | NUR ---
DCP: INITIAL ASSESSMENT Patient lives with spouse, Erica Villalobos. He has [facility] that is coming in to provide PT. No PHC services. Patient states he is able to complete ADLs with little help and is not driving at this time. PCP is Dr. Robert Chavira. Pharmacy is [facility] [address] in [place]. Patient voiced no safety concerns regarding returning home and states he has no difficulty with housing or buying food. DCP is home. Patient states that he could not tolerate pain after Physical Therapist came to his home on 07/16/25, and worked with him. Dr. Quick aware and plans to discharge patient on 07/21/25 with current home health but different PT. Patient's nurse is also awae. Addendum: 07/20/25 at 1647 by DEMARCO CASTILLO SS Amended: Links added.
[2025-07-21 03:30] VITALS: BP 119/63; PULSE 60; RESP 20; TEMP 97.9
[2025-07-21 07:44] VITALS: BP 124/69; PULSE 67; RESP 16; TEMP 97.6
[2025-07-21 08:00] VITALS: O2SAT 95
--- NOTE | 2025-07-21 09:43 | NUR ---
DC PLAN CALLED [facility] [phone] EXPLAINED THAT PATIENT HAD COME IN DUE TO PAIN AFTER PHYSICAL THERAPY. SAID PANTERA WOULD LET HIS NURSE KNOW PLAN TO DC TODAY. EMILY EMAILED NOTES REQUESTED TO [email or web address] SAID PANTERA TO RETURN. Addendum: 07/21/25 at 0948 by YAQUELIN VORA RN CM Amended: Links added.
[2025-07-21 11:43] VITALS: BP 120/94; PULSE 78; RESP 16; TEMP 97.6
--- NOTE | 2025-07-21 13:54 | DS ---
Discharge Summary Hospital Course Summary: Patient's pain has improved. He has been cleared by Orthopedic surgery for discharge. Patient should follow up PCP and orthopedic surgery Assessment/Plan: ASSESSMENT: Right knee pain, POA Status post right knee arthroplasty on 07/11/2025 Hyperlactatemia , POA Weakness, POA PLAN: Monitor off antibiotics for Signs of infection Trend WBCs Tylenol, oxycodone and IV morphine p.r.n. for breakthrough pain I agree with Toradol scheduled Follow up with Orthopedic surgery, appreciate assistance O2 nasal cannula as needed Continue atorvastatin Monitor blood pressure continue heart healthy diet GI prophylaxis with famotidine No need for IV fluids Trend a.m. BMP Replete electrolytes as necessary DVT prophylaxis with SCDs only for now Trend a.m. CBC Full code Case was discussed with patient's nurse at bedside Attention time greater than 30 minutes Home Medications: Active Scripts Hydrocodone/Acetaminophen (Hydrocodon-Acetaminophen 5-325) 5 Mg-325 Mg Tablet, 1-2 TAB PO Q8H PRN for ACUTE POST-OP PAIN (G89.18) for 7 Days, #42 TAB 0 Refills Prov:CONSTANCE ALDRICH MD 07/14/25 Aspirin (Aspirin EC) 81 Mg Tablet.dr 81 MG PO BID for DVT PROPHYLAXIS for 20 Days, #40 TAB Prov:CONSTANCE ALDRICH MD 07/14/25 Reported Medications Hydroxychloroquine Sulfate (Hydroxychloroquine Sulfate) 200 Mg Tablet, 200 MG PO DAILY, TAB EVERY MON-FRI 07/10/25 Carvedilol (Carvedilol) 3.125 Mg Tablet, 3.125 MG PO BID, TAB 07/10/25 Atorvastatin Calcium (LIPITOR) 20 Mg Tab, 20 MG PO DAILY, TAB 07/10/25 Lisinopril (Lisinopril) 2.5 Mg Tablet, 2.5 MG PO DAILY, TAB 07/10/25 Time spent arranging discharge: 31-60 minutes DEVIKA GRAHAM IV, MD Jul 21, 2025 13:54
[2025-07-21 15:17] VITALS: BP 104/69; PULSE 85; RESP 18; TEMP 97.9
== END 2025-07-21 17:00 | disposition home health service (06) | DRG 948 ==
LOC: EDH 16:32 → EDHIP 18:05 → 4BH 21:16 → 4CH 07-21 08:59
PROVIDERS: ADMIT Internal Medicine; ATTEND Internal Medicine
DX: G89.18 Other acute postprocedural pain (principal); E86.0 Dehydration; E11.9 Type 2 diabetes mellitus without complications; E78.00 Pure hypercholesterolemia, unspecified; Z96.653 Presence of artificial knee joint, bilateral; Z51.5 Encounter for palliative care; Z82.3 Family history of stroke; Z82.49 Family history of ischemic heart disease and other diseases of the circulatory system; Z95.1 Presence of aortocoronary bypass graft; Z95.5 Presence of coronary angioplasty implant and graft
CPT/HCPCS: 36415; 73562; 80048; 81003; 82550; 83605; 83735; 84100; 84145; 84484; 85025; 87040; 87086; 93005; 99285; G0378; J0696; J1885; J2270